=== PATIENT | female | born 1965 | race Caucasian/White ===

== ENCOUNTER → 2017-01-07 | Outpatient (CLI) | payer BC ==
[~2017-01-07] MED LIST: BNC/20125 PO; CHOL1TAB42; CHOL2000; CINN1CAP2 PO; COEN1CAP7 PO; FLAX100024; FLAX1CAP PO; FLUT0.0529; FLUT0.15; LEVO75TA PO; LEVO75TA36 PO; MULT-513 PO; MULTTAB58 PO; OLME1TAB11 PO; OMEP20TA; OMEP40CA41 PO; ONDA4TAB10 SL; ROSU5TAB PO; ZNTT/150 PO; mega red
--- NOTE | 2017-01-08 08:28 | MAMMOGRAPHY REPORT ---
BILATERAL DIGITAL SCREENING MAMMOGRAM TOMOSYNTHESIS WITH CAD: 01/07/2017 CLINICAL HISTORY: Routine screening. Patient has no complaints. TECHNIQUE: Breast tomosynthesis in addition to standard 2D mammography was performed. Current study was also evaluated with a Computer Aided Detection (CAD) system. COMPARISON: Comparison is made to exams dated: 01/04/2016 mammogram, 04/27/2013 mammogram, 04/15/2012 m ammogram, 10/25/2011 mammogram, 04/17/2011 mammogram, and 04/17/2011 ultrasound - [facility]. BREAST COMPOSITION: There are scattered areas of fibroglandular density in both breasts. FINDINGS: A 4 mm nodular asymmetry with associated punctate microcalcifications in the lateral post erior right breast, only seen on the CC view, appears very similar to the 2015 and 2012 mammograms, therefore likely benign. No new suspicious mass, architectural distortion or cluster of microcalcif ications is seen. IMPRESSION: ACR BI-RADS CATEGORY 1: NEGATIVE There is no mammographic evidence of malignancy. A 1 year screening mammogram is recommended. The p atient will receive written notification of the results. Approximately 10% of breast cancers are not detected with mammography. A negative mammographic repor t should not delay biopsy if a clinically suggestive mass is present. Marguerite Camacho M.D. ay/:01/07/2017 18:35:51 Paver Layer: Lara ISAACS(R)(M), [facility] letter sent: Normal 1/2 BI-RADS Code: ACR BI-RADS Category 1: Negative
== END | disposition home or self-care (01) ==
LOC: C.MAMM 14:51
PROVIDERS: ATTEND Internal Medicine
DX: Z12.31 Encounter for screening mammogram for malignant neoplasm of breast (principal)

== ENCOUNTER 2017-01-21 18:19 | Emergency (ER) | payer BC ==
[~2017-01-21] VITALS: Ht 170.2 cm; Wt 110.0 kg
[~2017-01-21 18:19] MED LIST changes: -CHOL1TAB42; -CINN1CAP2 PO; -COEN1CAP7 PO; -FLAX1CAP PO; -FLUT0.15; -LEVO75TA PO; -MULT-513 PO; -OLME1TAB11 PO; -OMEP40CA41 PO; -ONDA4TAB10 SL; -ZNTT/150 PO
[2017-01-21 18:23] VITALS: TEMP 36.9; Ht 170.2 cm; Wt 110.0 kg
[2017-01-21] MEDS ORDERED: ONDANSETRON INJ 2 MG/ML 2 ML VIAL IV STA (18:41)
[2017-01-21] MEDS ORDERED: SODIUM CHLORIDE 0.9% 1000ML 1,000 ML IV STA (18:41)
[2017-01-21 18:57] LABS: BASO % 0.1 %; BASO ABS # 0.01 K/uL (0-0.2); COMPLETE YES; HEMATOCRIT 43.4 % (37-47); IG% 0.3 %; LYMPH % 21.1 %; LYMPH ABS # 1.96 K/uL (1.2-3.4); MEAN CELL VOLUME 91.2 fL (80-100); MEAN CORPUSCULAR HEMOGLOBIN 31.7 pg (25-34); MEAN CORPUSCULAR HGB CONC 34.8 g/dl (32-36); MEAN PLATELET VOLUME 10.6 fL (7.4-10.4); MONO % 10.6 %; NEUT % 66.9 %; PLATELET COUNT 229 K/uL (130-400); RED BLOOD COUNT 4.76 M/uL (4.2-5.4); WHITE BLOOD COUNT 9.27 K/uL (4.8-10.8)
[2017-01-21] MEDS ORDERED: COEN1CAP7 PO (18:58)
[2017-01-21] MEDS ORDERED: CINN1CAP2 PO (18:58)
[2017-01-21] MEDS ORDERED: MULT-513 PO (18:58)
[2017-01-21] MEDS ORDERED: OLME1TAB11 PO (18:58)
[2017-01-21] MEDS ORDERED: OMEP40CA41 PO (18:58)
[2017-01-21] MEDS ORDERED: LEVO75TA PO (18:58)
[2017-01-21] MEDS ORDERED: FLUT0.15 (18:58)
[2017-01-21] MEDS ORDERED: CHOL1TAB42 (18:58)
[2017-01-21] MEDS ORDERED: FLAX1CAP PO (18:58)
--- NOTE | 2017-01-21 19:01 | DIAGNOSTIC IMAGING REPORT ---
CHEST ONE VIEW PORTABLE CLINICAL HISTORY: Right upper quadrant abdominal pain. Nausea. COMPARISON STUDY: No previous studies for comparison. FINDINGS: The cardiac and mediastinal contours are normal. There is no evidence of focal pulmonary consolidation. There is no evidence of failure. No pleural effusions are visualized.[ There is mild elevation right hemidiaphragm. There is no free intraperitoneal air. IMPRESSION: No active disease in the chest. Electronically signed by: Marquis Ang M.D. 01/21/2017 6:59 PM Dictated Date/Time: 01/21/2017 6:59 PM
[2017-01-21 19:13] LABS: URINE APPEARANCE CLEAR (CLEAR); URINE BILIRUBIN NEG (NEG); URINE COLOR YELLOW; URINE NITRITE NEG (NEG); URINE PH 5.5 (4.5-7.5); URINE SPECIFIC GRAVITY 1.009 (1.000-1.030); UROBILINOGEN NEG (NEG); ZZUR CULT IF INDIC CLEAN CATCH NO
[2017-01-21 19:15] LABS: ALT/SGPT 47 U/L (12-78); AST/SGOT 24 U/L (15-37); BLOOD UREA NITROGEN 15 mg/dl (7-18); BUN/CREATININE RATIO 16.8 (10-20); CALCIUM 9.3 mg/dl (8.5-10.1); CARBON DIOXIDE 27 mmol/L (21-32); CHLORIDE 108 mmol/L (98-107); CREATININE 0.89 mg/dl (0.60-1.20); GLUCOSE 101 mg/dl (70-99); SODIUM 142 mmol/L (136-145)
[2017-01-21 19:17] LABS: MANUAL MICROSCOPIC REQUIRED? NO; REVIEW REQ? NO
[2017-01-21 19:20] LABS: ALB/GLOB RATIO 1.2 (0.9-2); ALKALINE PHOSPHATASE 77 U/L (45-117)
--- NOTE | 2017-01-21 19:51 | DIAGNOSTIC IMAGING REPORT ---
BILIARY ULTRASOUND CLINICAL HISTORY: Right upper quadrant flank pain COMPARISON STUDY: No previous studies for comparison. FINDINGS: The head and proximal body of pancreas appears normal. The tail was nonvisualized. The liver is of increased echogenicity, a nonspecific finding most often seen in hepatic steatosis. No gallstones are visualized. There is no ductal dilatation. There is no right-sided hydronephrosis. Common bile duct measured 5 mm IMPRESSION: 1. Increased hepatic echogenicity, a nonspecific finding most often seen in hepatic steatosis 2. Ultrasonographically normal gallbladder. No evidence of ductal dilatation. Electronically signed by: Marquis Ang M.D. 01/21/2017 7:50 PM Dictated Date/Time: 01/21/2017 7:48 PM
--- NOTE | 2017-01-21 20:21 | EMERGENCY ROOM VISIT NOTE ---
History First contact with patient: 18:27 Chief Complaint: ABDOMINAL PAIN Stated Complaint: R SIDE PAIN,BACK PAIN UNDER RIB Nursing Triage Summary: Pr reports right abd/flank pain since Friday night. Bloated feeling, nausea. denies vomiting. Not eating much History of Present Illness The patient is a 51 year old female who presents to the Emergency Room with complaints of right side pain for the past 2 days. She states that since eating dinner 2 days ago, she has not been feeling well. She has had some right -sided abdominal/flank pain which she describes as a bloating/pressure sensation and rates a 6/10. She has had some associated nausea but no vomiting. She took ibuprofen for her symptoms but states that this made her stomach burn. She reports chills, but denies any fevers. She did have some diarrhea 2 days ago but has not had any since then. She has been able to eat toast and crackers but has not had much of an appetite. She denies any history of similar symptoms. She denies any history of abdominal surgeries. She denies any chest pain, shortness of breath, cough, urinary symptoms. Review of Systems A complete 10 point review of systems was reviewed with the patient with pertinent positives and negatives as per history of present illness. All else were negative. Past Medical/Surgical History Medical Problems: (1) complex endometial hyperplasia with atypia Social History Smoking Status: Never Smoker Current/Historical Medications Scheduled Cholecalciferol (Vitamin D), 5,000 UNITS Q2D Cinnamon (Cinnamon), 2 CAP PO DAILY Coenzyme Q10 (Ubidecarenone) (Coq10), 200 MG PO DAILY Flaxseed (Linseed) (Flaxseed Oil Maximum Stre 1300 mg), 1 CAP PO BID Fluticasone Propionate (Nasal) (Flonase Allergy Relief), 2 SPRAYS NA DAILY Levothyroxine Sodium (Synthroid), 75 MCG PO DAILY Multivitamins/Minerals (Mvi With Minerals), 1 TAB PO DAILY Olmesartan Medoxomil (Benicar), 20 MG PO QAM Omeprazole (Prilosec), 40 MG PO DAILY Ondasetron Odt (Zofran Odt), 4 MG SL Q6H Ranitidine (Zantac), 150 MG PO DAILY Rosuvastatin Calcium (Crestor), 5 MG PO DAILY Allergies Coded Allergies: Niacin (Verified Allergy, Mild, TINGLING FROM HEAD TO TOES, REDDNESS, 11/26) Uncoded Allergies: TAPE (Allergy, Mild, ITCHING AND REDDNESS, 11/26/12) bandaids, gauze (Adverse Reaction, Unknown, red rash, 11/14/15) Physical Exam Vital Signs Date Time Temp Pulse Resp B/P Pulse Ox O2 Delivery O2 Flow Rate FiO2 01/21/17 20:32 80 18 120/81 100 01/21/17 18:23 36.9 91 18 143/95 95 Room Air Physical Exam VITALS: Vitals are noted on the nurse's note and reviewed by myself. Vital signs stable. GENERAL: This is a 51-year-old female, in no acute distress, nondiaphoretic, well-developed well-nourished. SKIN: Capillary reflex less than 2 seconds. HEENT: Normocephalic. PERRLA. EOMI. Nares patent. Mucous membranes moist. Neck is supple without nuchal rigidity. HEART: Regular rate and rhythm without murmurs gallops or rubs. LUNGS: Clear to auscultation bilaterally without wheezes, rales or rhonchi. ABDOMEN: Positive bowel sounds x 4. Soft, minimal tenderness to palpation of the right upper quadrant. No guarding or rebound tenderness. MUSCULOSKELETAL: No CVA tenderness. NEURO: Patient was alert and oriented to person place and time. Medical Decision & Procedures ER Provider Diagnostic Interpretation: CHEST ONE VIEW PORTABLE FINDINGS: The cardiac and mediastinal contours are normal. There is no evidence of focal pulmonary consolidation. There is no evidence of failure. No pleural effusions are visualized.[ There is mild elevation right hemidiaphragm. There is no free intraperitoneal air. IMPRESSION: No active disease in the chest. BILIARY ULTRASOUND FINDINGS: The head and proximal body of pancreas appears normal. The tail was nonvisualized. The liver is of increased echogenicity, a nonspecific finding most often seen in hepatic steatosis. No gallstones are visualized. There is no ductal dilatation. There is no right-sided hydronephrosis. Common bile duct measured 5 mm IMPRESSION: 1. Increased hepatic echogenicity, a nonspecific finding most often seen in hepatic steatosis 2. Ultrasonographically normal gallbladder. No evidence of ductal dilatation. Laboratory Results 01/21/17 18:45 Red Blood Count 4.76, Mean Corpuscular Volume 91.2, Mean Corpuscular Hemoglobin 31.7, Mean Corpuscular Hemoglobin Concent 34.8, Mean Platelet Volume 10.6, Neutrophils (%) (Auto) 66.9, Lymphocytes (%) (Auto) 21.1, Monocytes (%) (Auto) 10.6, Eosinophils (%) (Auto) 1.0, Basophils (%) (Auto) 0.1, Neutrophils # (Auto ) 6.20, Lymphocytes # (Auto) 1.96, Monocytes # (Auto) 0.98, Eosinophils # (Auto ) 0.09, Basophils # (Auto) 0.01 01/21/17 18:45 Test 01/21/17 18:45 01/21/17 19:05 White Blood Count 9.27 K/uL (4.8-10.8) Red Blood Count 4.76 M/uL (4.2-5.4) Hemoglobin 15.1 g/dL (12.0-16.0) Hematocrit 43.4 % (37-47) Mean Corpuscular Volume 91.2 fL (80-100) Mean Corpuscular Hemoglobin 31.7 pg (25-34) Mean Corpuscular Hemoglobin Concent 34.8 g/dl (32-36) Platelet Count 229 K/uL (130-400) Mean Platelet Volume 10.6 fL (7.4-10.4) Neutrophils (%) (Auto) 66.9 % Lymphocytes (%) (Auto) 21.1 % Monocytes (%) (Auto) 10.6 % Eosinophils (%) (Auto) 1.0 % Basophils (%) (Auto) 0.1 % Neutrophils # (Auto) 6.20 K/uL (1.4-6.5) Lymphocytes # (Auto) 1.96 K/uL (1.2-3.4) Monocytes # (Auto) 0.98 K/uL (0.11-0.59) Eosinophils # (Auto) 0.09 K/uL (0-0.5) Basophils # (Auto) 0.01 K/uL (0-0.2) RDW Standard Deviation 41.2 fL (36.4-46.3) RDW Coefficient of Variation 12.3 % (11.5-14.5) Immature Granulocyte % (Auto) 0.3 % Immature Granulocyte # (Auto) 0.03 K/uL (0.00-0.02) Anion Gap 7.0 mmol/L (3-11) Est Creatinine Clear Calc Drug Dose 95.6 ml/min Estimated GFR () 87.0 Estimated GFR (Non- 75.0 BUN/Creatinine Ratio 16.8 (10-20) Calcium Level 9.3 mg/dl (8.5-10.1) Total Bilirubin 0.6 mg/dl (0.2-1) Aspartate Amino Transf (AST/SGOT) 24 U/L (15-37) Alanine Aminotransferase (ALT/SGPT) 47 U/L (12-78) Alkaline Phosphatase 77 U/L (45-117) Troponin I < 0.015 ng/ml (0-0.045) Total Protein 7.8 gm/dl (6.4-8.2) Albumin 4.2 gm/dl (3.4-5.0) Globulin 3.6 gm/dl (2.5-4.0) Albumin/Globulin Ratio 1.2 (0.9-2) Lipase 151 U/L (73-393) Urine Color YELLOW Urine Appearance CLEAR (CLEAR) Urine pH 5.5 (4.5-7.5) Urine Specific [place] 1.009 (1.000-1.030) Urine Protein NEG (NEG) Urine Glucose (UA) NEG (NEG) Urine Ketones TRACE (NEG) Urine Occult Blood NEG (NEG) Urine Nitrite NEG (NEG) Urine Bilirubin NEG (NEG) Urine Urobilinogen NEG (NEG) Urine Leukocyte Esterase NEG (NEG) Urine Test NEG (NEG) Medications Administered Medications (Trade) Dose Ordered Sig/Glenn Route Start Time Stop Time Status Last Admin Dose Admin Sodium Chloride (Nss 1000ml) 1,000 ml @ 999 mls/hr Q1H1M STAT IV 01/21/17 18:41 01/21/17 19:41 DC 01/21/17 19:03 999 MLS/HR Ondansetron HCl (Zofran Inj) 4 mg NOW STAT IV 01/21/17 18:41 01/21/17 18:43 DC 01/21/17 19:01 4 MG ECG Indication: abdominal pain Rate (beats per minute): 85 Rhythm: normal sinus Findings: no acute ischemic change, no ectopy Comparison ECG Date: no prior available ED Course The patient was evaluated as above. Labs were drawn and IV access was obtained. Patient was medicated with 1 L normal saline solution and 4 mg Zofran IV. Patient was reevaluated and felt much better. Findings were discussed. Discharge instructions were reviewed with the patient. The patient verbalized understanding of my assessment and treatment plan and was discharged home in good condition. Medical Decision Differential diagnosis includes cholecystitis, biliary colic, peptic ulcer disease, GERD, perforated viscus, bowel obstruction, among others. The patient is a 51-year-old female who presents today complaining of right upper quadrant pain and nausea. Labs revealed no leukocytosis, anemia or concerning electrolyte abnormalities. Urinalysis was not suggestive of infection. Urine was negative. EKG was interpreted by myself and shows a normal sinus rhythm without ischemic changes. Lipase was not elevated. A chest x-ray was unremarkable. Right upper quadrant ultrasound was performed and did not show any evidence of gallbladder disease. The patient does admit to a history of GERD and may have a duodenal or peptic ulcer. She was instructed to continue her Prilosec and also take Zantac daily. She will follow-up with her primary care provider within 48 hours for further evaluation of her symptoms. The patient's case was reviewed with Dr. Bansal, ED attending physician, who agreed with my assessment and treatment plan. Based on the patient's presentation and work up, I feel the patient is stable for outpatient treatment. The patient was educated to return to the emergency department for any worsening of their current condition or new/concerning symptoms. She will follow up with her PCP. Impression Primary Impression: RUQ abdominal pain Departure Information Dispostion Home / Self-Care Condition GOOD Prescriptions Ranitidine (Zantac) 150 Mg Tab 150 MG PO DAILY for 14 Days, #14 TAB Prov: Rachana Gomez PA-C 01/21/17 Ondasetron Odt (ZOFRAN ODT) 4 Mg Tab 4 MG SL Q6H for Nausea, #15 TAB Prov: Rachana Gomez PA-C 01/21/17 Referrals Bennie Nickerson M.D. (PCP) Patient Instructions My [facility] Additional Instructions You have been treated in the Emergency Department your Abdominal Pain. Laboratory results and imaging studies have ruled out any emergent causes for your abdominal pain which would warrant admission or surgery. You have been prescribed Zofran to be used for any nausea or vomiting. Take as prescribed. Zantac as prescribed. For pain control, you can use the following [id number] medicines (if >12 yo): - Regular strength (325mg/tab) Tylenol (acetaminophen) 2 tabs every 4-6 hours as needed. Do not exceed 12 tablets in a 24 hour period. Avoid taking more than 4 grams (4000 mg) of Tylenol per day. This includes any other sources of acetaminophen you may take on a regular basis. You should not take ibuprofen, as this may worsen your symptoms. Drink plenty of water and stay well hydrated. As with any trip to the Emergency Department, you should follow-up with your Primary Care Provider from today's visit. Call them to schedule a follow-up appointment within 48 hours. Return to the emergency department if your symptoms persist despite treatment plan outlined above or if the following symptoms occur: fevers, chills, worsening nausea/vomiting, blood in your stool or urine.
[2017-01-21] MEDS ORDERED: ONDA4TAB10 SL (20:26)
[2017-01-21] MEDS ORDERED: ZNTT/150 PO (20:26)
[2017-01-21 20:32] VITALS: BP 120/81; PULSE 80; O2SAT 100
== END 2017-01-21 20:33 | disposition home or self-care (01) ==
LOC: C.EDB 18:20 → C.EDC 20:33
DX: R10.11 Right upper quadrant pain (principal); K21.9 Gastro-esophageal reflux disease without esophagitis; Z79.899 Other long term (current) drug therapy; Z88.8 Allergy status to other drugs, medicaments and biological substances

== ENCOUNTER → 2017-02-06 | Outpatient (CLI) | payer BC ==
[~2017-02-06] MED LIST changes: -BNC/20125 PO; +CHOL1TAB42; -CHOL2000; +CINN1CAP2 PO; +COEN1CAP7 PO; -FLAX100024; +FLAX1CAP PO; -FLUT0.0529; +FLUT0.15; +LEVO75TA PO; -LEVO75TA36 PO; +MULT-513 PO; -MULTTAB58 PO; +OLME1TAB11 PO; -OMEP20TA; +OMEP40CA41 PO; +ONDA4TAB10 SL; -mega red
[2017-02-06 13:57] LABS: ESTIMATED AVERAGE GLUCOSE 111 mg/dl; HA1C FLAG Normal (Normal)
[2017-02-06 14:41] LABS: CHOLESTEROL/HDL RATIO 3.6; THYROID STIMULATING HORMONE 1.94 uIu/ml (0.300-4.500)
== END | disposition home or self-care (01) ==
LOC: C.LABPBG 10:01
PROVIDERS: ATTEND Internal Medicine
DX: R73.01 Impaired fasting glucose (principal)

== ENCOUNTER → 2017-02-27 | Outpatient (CLI) | payer BC | END | disposition home or self-care (01) | LOC: C.CPL 15:15 | PROVIDERS: ATTEND Orthopaedic Surgery Sports Medicine | DX: S86.011A Strain of right Achilles tendon, initial encounter (principal); X58.XXXA Exposure to other specified factors, initial encounter ==

== ENCOUNTER → 2017-08-18 | Outpatient (CLI) | payer BC ==
[~2017-08-18] MED LIST changes: -ONDA4TAB10 SL
[2017-08-18 11:40] LABS: BASO % 0.6 %; BASO ABS # 0.04 K/uL (0-0.2); COMPLETE YES; EOS % 3.2 %; HEMATOCRIT 40.2 % (37-47); IG% 0.2 %; LYMPH % 42.5 %; LYMPH ABS # 2.65 K/uL (1.2-3.4); MEAN CELL VOLUME 91.2 fL (80-100); MEAN CORPUSCULAR HGB CONC 35.1 g/dl (32-36); MONO % 9.5 %; PLATELET COUNT 227 K/uL (130-400); RED BLOOD COUNT 4.41 M/uL (4.2-5.4); WHITE BLOOD COUNT 6.23 K/uL (4.8-10.8)
[2017-08-18 11:52] LABS: ALT/SGPT 46 U/L (12-78); BLOOD UREA NITROGEN 20 mg/dl (7-18); BUN/CREATININE RATIO 22.1 (10-20); CARBON DIOXIDE 26 mmol/L (21-32); CHLORIDE 105 mmol/L (98-107); CHOLESTEROL 139 mg/dl (0-200); CREATININE 0.88 mg/dl (0.60-1.20); GLUCOSE 90 mg/dl (70-99); POTASSIUM 3.9 mmol/L (3.5-5.1); SODIUM 138 mmol/L (136-145); TRIGLYCERIDES 168 mg/dl (0-150); VERY LOW DENSITY LIPOPROT CALC 34 mg/dl
[2017-08-18 12:03] LABS: ALB/GLOB RATIO 1.1 (0.9-2); ALKALINE PHOSPHATASE 83 U/L (45-117); AST/SGOT 29 U/L (15-37); HDL CHOLESTEROL 47 mg/dl; LDL CHOLESTEROL CALCULATED 58 mg/dl
[2017-08-18 12:12] LABS: ESTIMATED AVERAGE GLUCOSE 105 mg/dl; HA1C FLAG Normal (Normal)
== END | disposition home or self-care (01) ==
LOC: C.LABPBG 09:39
PROVIDERS: ATTEND Internal Medicine
DX: K21.9 Gastro-esophageal reflux disease without esophagitis (principal); E78.5 Hyperlipidemia, unspecified; E03.9 Hypothyroidism, unspecified; R73.01 Impaired fasting glucose; S86.019A Strain of unspecified Achilles tendon, initial encounter; X58.XXXA Exposure to other specified factors, initial encounter; I10 Essential (primary) hypertension

== ENCOUNTER → 2017-11-07 | Day surgery (SDC) | payer BC ==
[2017-10-27 14:54] VITALS: Ht 170.2 cm; Wt 109.1 kg
[~2017-11-07] VITALS: Ht 170.2 cm; Wt 109.1 kg
[~2017-11-07] MED LIST changes: +ASCA500 PO; +ASPI81TA28 PO; +BNC/20 PO; -CHOL1TAB42; +CHOL1TAB76 PO; -CINN1CAP2 PO; -COEN1CAP7 PO; -FLAX1CAP PO; -FLUT0.15; +LIDOCAINE HCL 2% 2 ML VIAL (20MG/ML) ONE; -OLME1TAB11 PO; +PROPOFOL IV EMULSION 10 MG/ML 20 ML VIAL IV ONE; +SODIUM CHLORIDE 0.9% 500ML 500 ML IV ONE; +TURM1CAP4 PO; +ZINC50TA36 PO
--- NOTE | 2017-11-07 09:41 | Endo History and Physical ---
History & Physical Date of Service: Nov 07, 2017. Chief Complaint: Screening Referring Physician: Bennie Nickerson History of Present Illness 51 yo CF who presents for screening colonoscopy. Past Surgical History Hx Cardiac Surgery: No Hx Internal Defibrillator: No Hx Pacemaker: No Hx Abdominal Surgery: Yes (ECTOPIC SX X2, HYSTERECTOMY) Hx of Implantable Prosthesis: No Hx Post-Op Nausea and Vomiting: No Hx Cancer Surgery: No Hx Orthopedic: Yes (RIGHT HEEL SPUR & ACHILES TENDON SX) Hx Urinary Tract Surgery: No Social History Smoking Status: Never Smoker Hx Substance Use: No Hx Alcohol Use: No Allergies Coded Allergies: Niacin (Verified Allergy, Mild, TINGLING FROM HEAD TO TOES, REDDNESS, ) Uncoded Allergies: TAPE (Allergy, Mild, ITCHING AND REDDNESS, 11/26/12) bandaids, gauze (Adverse Reaction, Unknown, red rash, 11/14/15) Current Medications Reported Home Medications Medications Dose Route/Sig Max Daily Dose Days Date Category Aspirin Ec (Aspirin) 81 Mg Tab 81 Mg PO 2XWK 10/27/17 Reported Turmeric (Turmeric (Curcuma Longa)) 500 Mg Cap 500 Mg PO QPM 10/27/17 Reported [facility] Zinc (Zinc) 50 Mg Tab 50 Mg PO QPM 10/27/17 Reported Vitamin C (Ascorbic Acid) 500 Mg Tab 1,000 Mg PO QPM 10/27/17 Reported D 2000 (Cholecalciferol) 2,000 Unit Tab 2,000 Unit PO QPM 10/27/17 Reported Mvi With Minerals (Multivitamins/Minerals) Tab 1 Tab PO QPM 01/21/17 Reported Benicar (Olmesartan Medoxomil) 20 Mg Tab 20 Mg PO QAM 01/21/17 Reported Synthroid (Levothyroxine Sodium) 75 Mcg Tab 75 Mcg PO QAM 01/21/17 Reported Prilosec (Omeprazole) 40 Mg Cap 40 Mg PO QPM 01/21/17 Reported Crestor (Rosuvastatin Calcium) 5 Mg Tab 5 Mg PO QPM 01/25/13 Reported Vital Signs Weight (Kilograms): 109.09 Height (Feet): 5 Height (Inches): 7 Date Time Temp Pulse Resp B/P (MAP) Pulse Ox O2 Delivery O2 Flow Rate FiO2 11/07/17 09:34 37.2 79 18 149/93 (111) 100 Room Air Physical Exam General Appearance: WD/WN, no apparent distress Respiratory/Chest: Auscultation: breath sounds normal Cardiovascular: Heart Auscultation: RRR Abdomen: Bowel Sounds: normal Inspection & Palpation: soft, non-distended, no tenderness, guarding & rebound Assessment and Plan Assessment: 51 yo CF who presents for screening colonoscopy. Plan: Proceed with colonoscopy.
--- NOTE | 2017-11-07 10:07 | Discharge Instructions ---
Endoscopy Patient Instructions Date / Procedure(s) Performed Nov 07, 2017. Colonoscopy Allergy Information Coded Allergies: Niacin (Verified Allergy, Mild, TINGLING FROM HEAD TO TOES, REDDNESS, ) Uncoded Allergies: TAPE (Allergy, Mild, ITCHING AND REDDNESS, 11/26/12) bandaids, gauze (Adverse Reaction, Unknown, red rash, 11/14/15) Discharge Date / Findings Nov 07, 2017. Diverticulosis Internal hemorrhoids Medication Instructions Stopped Medication(s): All Vitamins stopped 10/30/17 Aspirin stopped 10/23/17 OK to resume all medications today as prescribed Reported Home Medications Medications Dose Route/Sig Max Daily Dose Days Date Category Aspirin Ec (Aspirin) 81 Mg Tab 81 Mg PO 2XWK 10/27/17 Reported Turmeric (Turmeric (Curcuma Longa)) 500 Mg Cap 500 Mg PO QPM 10/27/17 Reported [facility] Zinc (Zinc) 50 Mg Tab 50 Mg PO QPM 10/27/17 Reported Vitamin C (Ascorbic Acid) 500 Mg Tab 1,000 Mg PO QPM 10/27/17 Reported D 2000 (Cholecalciferol) 2,000 Unit Tab 2,000 Unit PO QPM 10/27/17 Reported Mvi With Minerals (Multivitamins/Minerals) Tab 1 Tab PO QPM 01/21/17 Reported Benicar (Olmesartan Medoxomil) 20 Mg Tab 20 Mg PO QAM 01/21/17 Reported Synthroid (Levothyroxine Sodium) 75 Mcg Tab 75 Mcg PO QAM 01/21/17 Reported Prilosec (Omeprazole) 40 Mg Cap 40 Mg PO QPM 01/21/17 Reported Crestor (Rosuvastatin Calcium) 5 Mg Tab 5 Mg PO QPM 01/25/13 Reported Provider Instructions Activity Restrictions - No exercising or heavy lifting for 24 hours. - Do not drink alcohol the day of the procedure. - Do not drive a car or operate machinery until the day after the procedure. - Do not make any important decisions or sign important papers in 24 hours after the procedure. Following Day: - Return to full activity which may include returning to work/school. Diet Start your diet with liquids and light foods (jello, soup, juice, toast). Then eat your usual diet if not nauseated. Treatment For Common After Affects For mild abdominal pain, bloating, or excessive gas: - Rest - Eat lightly - Lie on right side Follow-Up Information Follow-up with Bennie Nickerson as scheduled Anesthesia Information What You Should Know You have had a procedure that required some medicine to reduce anxiety and discomfort. This treatment is called moderate sedation. After receiving the treatment, you may be sleepy, but you will be able to breathe on your own. The effects of the treatment may last for several hours. Follow these instructions along with Activity/Diet recommendations noted above: * Do NOT do anything where dizziness or clumsiness would be dangerous. * Rest quietly at home today, then you can be up and about tomorrow. * Have a responsible person stay with you the rest of today. * You may have had an I.V. today. If so, you may take the dressing off later today. Recommendations Call your doctor if: * Trouble breathing * Continuous vomiting for more than 24 hours * Temperature above 101 degrees * Severe abdominal pain or bloating * Pain not relieved by pain medicine ordered * There is increased drainage or redness from any incision * A large amount of rectal bleeding greater than 2-3 tablespoons. (If you had a polyp/s removed or have hemorrhoids, a small amount of blood - from the rectum is to be expected.) * You have any unanswered questions or concerns. IN THE EVENT OF A SERIOUS EMERGENCY, GO TO THE NEAREST EMERGENCY ROOM Your discharge instructions were prepared by provider Cipriano Tavarez. Patient Instructions Signature Page Linh Gupta Patient (or Guardian) Signature/Date: I have read and understand the instructions given to me by my caregivers. Caregiver/RN/Doctor Signature/Date: The above-named patient and/or guardian has received patient instructions on this date. + Original Patient Signature Page (only) stays with chart. Please make copy for patient.
--- NOTE | 2017-11-07 10:14 | GI REPORT ---
Procedure Date: 11/07/2017 9:25 AM Procedure: Colonoscopy Indications: Family history of colon cancer in a first-degree relative Medicines: Monitored Anesthesia Care Complications: No immediate complications. Estimated Blood Loss: Estimated blood loss: none. Procedure: Pre-Anesthesia Assessment: - Prior to the procedure, a History and Physical was performed, and patient medications and allergies were reviewed. The patient's tolerance of previous anesthesia was also reviewed. The risks and benefits of the procedure and the sedation options and risks were discussed with the patient. All questions were answered, and informed consent was obtained. Prior Anticoagulants: The patient has taken no previous anticoagulant or antiplatelet agents. ASA Grade Assessment: III - A patient with severe systemic disease. After reviewing the risks and benefits, the patient was deemed in satisfactory condition to undergo the procedure. After I obtained informed consent, the scope was passed under direct vision. Throughout the procedure, the patient's blood pressure, pulse, and oxygen saturations were monitored continuously. The Scope was introduced through the anus and advanced to the terminal ileum. The colonoscopy was performed without difficulty. The patient tolerated the procedure well. The quality of the bowel preparation was good. The terminal ileum, ileocecal valve, appendiceal orifice, and rectum were photographed. Findings: The perianal and digital rectal examinations were normal. Multiple small-mouthed diverticula were found in the sigmoid colon. Non-bleeding internal hemorrhoids were found during retroflexion. The hemorrhoids were small. Impression: - Diverticulosis in the sigmoid colon. - Non-bleeding internal hemorrhoids. - No specimens collected. Recommendation: - Resume previous diet. - Continue present medications. - Repeat colonoscopy in 5 years for surveillance. - Return to primary care physician as previously scheduled. Cipriano Tavarez, 11/07/2017 10:13:51 AM This report has been signed electronically. Note Initiated On: 11/07/2017 9:25 AM I attest to the content of the Intraoperative Record and orders documented therein, exceptions below
--- NOTE | 2017-11-07 10:31 | Anesthesiology Progress Note ---
Anesthesia Post Op Note Date & Time Nov 07, 2017 at 10:31 Vital Signs Pain Intensity: 0 Vital Signs Past 12 Hours Date Time Temp Pulse Resp B/P (MAP) Pulse Ox O2 Delivery O2 Flow Rate FiO2 11/07/17 10:24 71 20 122/70 (87) 98 Room Air 11/07/17 10:09 73 16 111/76 (88) 97 Room Air 11/07/17 09:34 37.2 79 18 149/93 (111) 100 Room Air Notes Mental Status: alert / awake / arousable, participated in evaluation Pt Amnestic to Procedure: Yes Nausea / Vomiting: adequately controlled Pain: adequately controlled Airway Patency, RR, SpO2: stable & adequate BP & HR: stable & adequate Hydration State: stable & adequate Anesthetic Complications: no major complications apparent
[2017-11-07 10:38] VITALS: BP 128/70; PULSE 68; O2SAT 98
== END | disposition home or self-care (01) ==
LOC: C.GI 08:34
PROVIDERS: ATTEND Internal Medicine
DX: Z12.11 Encounter for screening for malignant neoplasm of colon (principal); K57.30 Diverticulosis of large intestine without perforation or abscess without bleeding; K64.8 Other hemorrhoids; Z80.0 Family history of malignant neoplasm of digestive organs; G47.33 Obstructive sleep apnea (adult) (pediatric); K21.9 Gastro-esophageal reflux disease without esophagitis; I10 Essential (primary) hypertension; E66.9 Obesity, unspecified; Z68.37 Body mass index [BMI] 37.0-37.9, adult; Z79.82 Long term (current) use of aspirin; Z90.710 Acquired absence of both cervix and uterus

== ENCOUNTER → 2018-01-08 | Outpatient (CLI) | payer BC ==
[~2018-01-08] MED LIST changes: -LIDOCAINE HCL 2% 2 ML VIAL (20MG/ML) ONE; -PROPOFOL IV EMULSION 10 MG/ML 20 ML VIAL IV ONE; -SODIUM CHLORIDE 0.9% 500ML 500 ML IV ONE
--- NOTE | 2018-01-09 14:20 | MAMMOGRAPHY REPORT ---
BILATERAL DIGITAL SCREENING MAMMOGRAM TOMOSYNTHESIS WITH CAD: 01/08/2018 CLINICAL HISTORY: Routine screening. Patient has no complaints. TECHNIQUE: Breast tomosynthesis in addition to standard 2D mammography was performed. Current study was also evaluated with a Computer Aided Detection (CAD) system. COMPARISON: Comparison is made to exams dated: 01/07/2017 mammogram, 01/04/2016 mammogram, 04/27/2013 ma mmogram, 04/15/2012 mammogram, 10/25/2011 mammogram, and 04/17/2011 mammogram - [facility]. BREAST COMPOSITION: There are scattered areas of fibroglandular density in both breasts. FINDINGS: No suspicious masses, calcifications, or areas of architectural distortion are noted in ei ther breast. There has been no significant interval change compared to prior exams. Small cluster of benign-appearing punctate calcifications in the right upper outer quadrant is stable dating back to at least the 2016 exam and considered benign given long-term stability and morphology. IMPRESSION: ACR BI-RADS CATEGORY 2: BENIGN There is no mammographic evidence of malignancy. A 1 year screening mammogram is recommended. The pa tient will receive written notification of the results. Approximately 10% of breast cancers are not detected with mammography. A negative mammographic report should not delay biopsy if a clinically suggestive mass is present. Davida Reid M.D. /:01/08/2018 15:23:55 Mine Analyst: Lara Timmons [facility] letter sent: Normal 1/2 BI-RADS Code: ACR BI-RADS Category 2: Benign
== END | disposition home or self-care (01) ==
LOC: C.MAMM 14:11
PROVIDERS: ATTEND Internal Medicine
DX: Z12.31 Encounter for screening mammogram for malignant neoplasm of breast (principal)

== ENCOUNTER → 2018-01-08 | Outpatient (CLI) | payer BC ==
[~2018-01-08] MED LIST changes: +GADAVIST IV PRN
--- NOTE | 2018-01-08 16:53 | DIAGNOSTIC IMAGING REPORT ---
L LOWER EXT NONJOINT COMBO CLINICAL HISTORY: 52 years-old Female presenting with LT FOOT,EVAL FOR CYST/MASS IN FOREFOOT, fourth toe has a sister mass on the bottom of the toe, symptoms began in September and October this year. TECHNIQUE: Multisequence, multiplanar MR imaging of the left foot was performed before and after the administration of intravenous contrast. IV contrast: 11 mL of Gadavist. COMPARISON: None. FINDINGS: Localizer images: Unremarkable. Minimal bony edema suggested along the proximal to mid diaphysis of the fifth metatarsal, nonspecific. No associated T1 hypointensity. No other sites of bony edema. Small amount of fluid in the intermetatarsal bursa at the first interweb space without associated inflammatory change or significant distention. The fourth toe at the site of clinical concern demonstrates small amount of fluid along the plantar aspect at the level of the head of the proximal phalanx. The flexor tendon is intact. This appearance is similar to the remaining toes. No abnormal enhancements on postcontrast imaging. IMPRESSION: 1. No significant MR abnormality of the fourth toe at the site of clinical concern. No advanced degenerative or inflammatory change. No abnormal enhancement. 2. Nonspecific minimal bony edema in the fifth metatarsal diaphysis. The setting of a stress response. Correlate with tenderness and/or overuse. Electronically signed by: Bennie Ferrer M.D. 01/08/2018 4:51 PM Dictated Date/Time: 01/08/2018 4:46 PM
== END | disposition home or self-care (01) ==
LOC: C.MRI 14:46
PROVIDERS: ATTEND Orthopaedic Surgery Sports Medicine
DX: M67.472 Ganglion, left ankle and foot (principal)